=== PATIENT | female | born 1955 | race Caucasian/White ===

== ENCOUNTER 2017-10-09 18:16 | Emergency (ER) | payer OTHER ==
[2017-10-09 18:32] VITALS: BP 163/93; PULSE 79; RESP 16; TEMP 98.3; O2SAT 100
[2017-10-09] MEDS ORDERED: Naproxen 500 MG TAB PO STA (19:37)
[2017-10-09] MEDS ORDERED: Naproxen 500 MG TAB PO ONE (20:03)
--- NOTE | 2017-10-09 20:30 | ED PDOC ---
Lower Extremity Pain/Injury Time Seen by Provider: 10/09/17 18:33 Chief Complaint (Nursing): Lower Extremity Problem/Injury Chief Complaint (Provider): Left foot pain, crush injury History Per: Patient History/Exam Limitations: no limitations Onset/Duration Of Symptoms: Hrs Current Symptoms Are (Timing): Still Present Additional Complaint(s): PT states at 2pm she dropped a 15 pound weight on her left 3rd toe. PT states she didn't take anything for pain. Past Medical History Reviewed: Historical Data, Nursing Documentation, Vital Signs Vital Signs: Last Vital Signs Temp 98.3 F 10/09/17 18:30 Pulse 79 10/09/17 18:30 Resp 16 10/09/17 18:30 BP 163/93 H 10/09/17 18:30 Pulse Ox 100 10/09/17 18:30 - Medical History PMH: No Chronic Diseases - Surgical History Surgical History: No Surg Hx - Family History Family History: States: No Known Family Hx - Living Arrangements Living Arrangements: With Family - Social History Current smoker - smoking cessation education provided: No - Allergies Allergies/Adverse Reactions: Allergies Allergy/AdvReac Type Severity Reaction Status Date / Time shrimp Allergy RASH Verified 10/09/17 18:30 Review of Systems ROS Statement: Except As Marked, All Systems Reviewed And Found Negative Constitutional: Negative for: Fever, Chills Cardiovascular: Negative for: Chest Pain Respiratory: Negative for: Cough, Shortness of Breath Musculoskeletal: Positive for: Other Skin: Positive for: Bruising Physical Exam - Reviewed Nursing Documentation Reviewed: Yes Vital Signs Reviewed: Yes - Physical Exam Appears: Positive for: Well, Non-toxic, No Acute Distress Head Exam: Positive for: ATRAUMATIC, NORMAL INSPECTION, NORMOCEPHALIC Skin: Positive for: Warm. Negative for: Normal Color ((+) ecchymosis 3rd left toe ) Eye Exam: Positive for: Normal appearance ENT: Positive for: Normal ENT Inspection Neck: Positive for: Normal Respiratory: Negative for: Accessory Muscle Use, Respiratory Distress Back: Positive for: Normal Inspection Extremity: Positive for: Normal ROM Neurologic/Psych: Positive for: Alert, Oriented - ECG O2 Sat by Pulse Oximetry: 100 Medical Decision Making Medical Decision Making: XR without acute fracture or dislocation Disposition - Clinical Impression Clinical Impression: Toe contusion - Patient ED Disposition Is Patient to be Admitted: No Counseled Patient/Family Regarding: Diagnosis - Disposition Disposition: Routine/Home Disposition Time: 20:33 Condition: GOOD Additional Instructions: Ice, elevation. Instructions: Contusion (DC)
--- NOTE | 2017-10-10 11:04 | RAD ---
Date of service: 10/09/2017 PROCEDURE: Left Foot Radiographs. HISTORY: dropped 15 pound weight on toe, 2pm COMPARISON: None. FINDINGS: BONES: Bone alignment and mineralization are normal. There is no acute displaced fracture or bone destruction. JOINTS: Normal. SOFT TISSUES: Normal. OTHER FINDINGS: None. IMPRESSION: No acute fracture or dislocation.
== END 2017-10-09 20:45 | disposition home or self-care (01) ==
LOC: H.ER 18:16
DX: S90.122A Contusion of left lesser toe(s) without damage to nail, initial encounter (principal); W22.8XXA Striking against or struck by other objects, initial encounter; Y92.89 Other specified places as the place of occurrence of the external cause